=== PATIENT | male | born 1960 | race Caucasian/White ===

== ENCOUNTER → 2017-09-28 10:27 | Outpatient (CLI) | payer OTHER, SELFPAY ==
[2017-09-28 12:58] LABS: Anion Gap 8 (5-15); BUN 14 mg/dL (7-18); BUN/Creat Ratio 13.7 RATIO (10-20); Calcium,Total 8.9 mg/dL (8.5-10.1); Chloride 105 mmol/L (98-107); Creatinine, Serum 1.02 mg/dL (0.70-1.30); EST Glomerular Filtration Rate 80 mL/min (>60); Est Glom Filt Rate - Afr Amer 97 mL/min (>60); Glucose 99 mg/dL (74-106); Potassium 4.4 mmol/L (3.5-5.1); Sodium Level 143 mmol/L (136-145); T4 Free Direct 0.82 ng/dL (0.76-1.46); Thyroid Stim Hormone (TSH) 2.44 uIU/mL (0.358-3.74)
== END ==
PROVIDERS: Family Provider Family Medicine; PCP Family Medicine; Visit Provider Family Medicine
DX: E03.9 Hypothyroidism, unspecified (principal); R00.2 Palpitations
CPT/HCPCS: 36415; 80048; 83735; 84439; 84443

== ENCOUNTER → 2018-04-04 13:38 | Outpatient (CLI) | payer OTHER, SELFPAY ==
--- NOTE | 2018-04-04 13:42 | US_ITS ---
STUDY: THYROID ULTRASOUND REASON FOR EXAM: Male, 57 years old. Follow-up nodules. TECHNIQUE: Ultrasound evaluation of the thyroid was performed with real-time and static robertson-scale imaging. COMPARISON: 11/26/2016. FINDINGS: RIGHT LOBE: The right lobe of the thyroid gland measures 4.3 x 1.7 x 1.6 cm. There is a heterogeneous echotexture. There is a 9 mm solid nodule. LEFT LOBE: The left lobe of the thyroid gland measures 3.2 x 1.0 x 1.6 cm. There is a heterogeneous echotexture. There are no demonstrated solid, cystic or complex lesions. ISTHMUS: The isthmus measures 5 mm . The regional lymph nodes are normal. US/Thyroid IMPRESSION: Since prior exam, thyroid is significantly smaller in size. It remains heterogeneous. There is only one subcentimeter nodule definitely seen on the right. Annual follow-up is recommended Electronically Signed: Phan Borja MD at 14:28 EST , Service support ,
== END ==
PROVIDERS: Family Provider Family Medicine; PCP Family Medicine; Referring Provider Family Medicine; Visit Provider Family Medicine
DX: E04.2 Nontoxic multinodular goiter (principal)
CPT/HCPCS: 76536

== ENCOUNTER → 2019-01-03 09:09 | Outpatient (CLI) | payer OTHER, SELFPAY ==
[2019-01-03 12:59] LABS: Anion Gap 7 (5-15); BUN 14 mg/dL (7-18); BUN/Creat Ratio 13.3 RATIO (10-20); Calcium,Total 8.7 mg/dL (8.5-10.1); Chloride 106 mmol/L (98-107); Creatinine, Serum 1.05 mg/dL (0.70-1.30); EST Glomerular Filtration Rate 77 mL/min (>60); Est Glom Filt Rate - Afr Amer 93 mL/min (>60); Glucose 106 mg/dL (74-106); Potassium 4.5 mmol/L (3.5-5.1); Sodium Level 140 mmol/L (136-145); T4 Free Direct 0.84 ng/dL (0.76-1.46); Thyroid Stim Hormone (TSH) 3.33 uIU/mL (0.358-3.74)
== END ==
PROVIDERS: Family Provider Family Medicine; PCP Family Medicine; Visit Provider Family Medicine
DX: E03.9 Hypothyroidism, unspecified (principal); R73.01 Impaired fasting glucose
CPT/HCPCS: 36415; 80048; 84439; 84443

== ENCOUNTER → 2019-02-19 08:18 | Outpatient (CLI) | payer OTHER, SELFPAY ==
[2019-02-19 12:26] LABS: T4 Free Direct 0.98 ng/dL (0.76-1.46); Thyroid Stim Hormone (TSH) 1.46 uIU/mL (0.358-3.74)
== END ==
PROVIDERS: Family Provider Family Medicine; PCP Family Medicine; Referring Provider Family Medicine; Visit Provider Family Medicine
DX: E03.9 Hypothyroidism, unspecified (principal)
CPT/HCPCS: 36415; 84439; 84443

== ENCOUNTER → 2019-04-26 08:16 | Outpatient (CLI) | payer OTHER, SELFPAY ==
--- NOTE | 2019-04-26 08:24 | US_ITS ---
STUDY: THYROID ULTRASOUND REASON FOR EXAM: Male, 58 years old. NODULES TECHNIQUE: Ultrasound evaluation of the thyroid was performed with real-time and static robertson-scale imaging. COMPARISON: 11/26/2016, 04/04/2018. FINDINGS: RIGHT LOBE: The right lobe of the thyroid gland measures 5.3 x 1.6 x 1.6 cm. There is a heterogeneous echotexture. Several right-sided solid nodules are seen at the 3 largest measuring 0.9, 1.0, and 1.0 cm. LEFT LOBE: The left lobe of the thyroid gland measures 3.9 x 0.9 x 1.1 cm. There is a heterogeneous echotexture. There are no demonstrated solid, cystic or complex lesions. ISTHMUS: The isthmus measures 3 mm . The regional lymph nodes are normal. US/Thyroid IMPRESSION: Probable multinodular goiter. Bilateral heterogeneous thyroid lobes. Several right thyroid nodules as much as 1 cm. Suggest continued annual follow-up. Electronically Signed: Phan Borja MD at 17:15 EST , Service support ,
== END ==
PROVIDERS: PCP Family Medicine; Referring Provider Family Medicine; Visit Provider Family Medicine
DX: E04.2 Nontoxic multinodular goiter (principal)
CPT/HCPCS: 76536

== ENCOUNTER → 2020-04-28 09:57 | Outpatient (CLI) | payer OTHER, SELFPAY ==
[2020-04-28 12:49] LABS: Anion Gap 6 (5-15); BUN 16 mg/dL (7-18); BUN/Creat Ratio 14.3 RATIO (10-20); Calcium,Total 9.2 mg/dL (8.5-10.1); Chloride 105 mmol/L (98-107); Creatinine, Serum 1.12 mg/dL (0.70-1.30); EST Glomerular Filtration Rate 71 mL/min (>60); Est Glom Filt Rate - Afr Amer 86 mL/min (>60); Glucose 83 mg/dL (74-106); Potassium 3.7 mmol/L (3.5-5.1); Sodium Level 139 mmol/L (136-145); Thyroid Stim Hormone (TSH) 1.72 uIU/mL (0.358-3.74)
== END ==
PROVIDERS: PCP Family Medicine; Visit Provider Family Medicine
DX: E03.9 Hypothyroidism, unspecified (principal)
CPT/HCPCS: 36415; 80048; 84443

== ENCOUNTER → 2021-08-01 | Outpatient (CLI) | payer OTHER, SELFPAY ==
--- NOTE | 2021-08-01 07:58 | US_ITS ---
STUDY: THYROID ULTRASOUND REASON FOR EXAM: Male, 61 years old. NODULES TECHNIQUE: Ultrasound evaluation of the thyroid was performed with real-time and static robertson-scale imaging. COMPARISON: 04/26/2019 FINDINGS: RIGHT LOBE: The right lobe of the thyroid gland measures 4.9 x 1.6 x 1.3 cm. There is a heterogeneous echotexture. Nodule 1: No change in the 10 x 6 x 10 mm solid isoechoic wider than tall ill-defined marginated nodule with no echogenic foci (TR 3) in the posterior right lobe consistent with an adenoma. Nodule 2:10 x 6 x 5 mm solid very hypoechoic wider than tall irregular marginated nodule with no echogenic foci (TR 5) in the posterior right lobe and ultrasound-guided biopsy is recommended. Nodule 3: No change in the 6 x 6 x 9 mm solid isoechoic wider than tall ill-defined marginated nodule with no echogenic foci (TR 3) in the inferior right lobe consistent with an adenoma. LEFT LOBE: The left lobe of the thyroid gland measures 2.8 x 6.9 x 1.0 cm. There is a heterogeneous echotexture. There are no demonstrated solid, cystic or complex lesions. ISTHMUS: The isthmus measures 3 mm thick. . The regional lymph nodes are normal. US/Thyroid IMPRESSION: Thyroiditis with a new very hypoechoic nodule in the right lobe for which ultrasound-guided biopsy is recommended. Electronically Signed: Teodoro Jaquez MD at 17:56 EDT ,
[2021-08-01 09:17] LABS: T4 Free Direct 0.83 ng/dL (0.76-1.46); Thyroid Stim Hormone (TSH) 2.47 uIU/mL (0.358-3.74)
== END | disposition home or self-care (01) ==
PROVIDERS: PCP Family Medicine; Visit Provider Family Medicine
DX: E04.2 Nontoxic multinodular goiter (principal)
CPT/HCPCS: 36415; 76536; 84439; 84443

== ENCOUNTER → 2021-08-13 | Outpatient (CLI) | payer OTHER, SELFPAY ==
--- NOTE | 2021-08-13 09:40 | ASPS_PTH ---
PATIENT: AKIN FRAZIER LOC: [facility] U#:[id number] AGE/SX: 61/M ROOM: RE08/13/[address]: Dr. Cristiano Weiner MD : 1960 BED: DIS: 08/13/2021 SPEC #: [id number] RECD: 08/13/21 11:28 STATUS: ABHISHEK OLIVARES #: [id number] JOE: 08/13/21 09:[address]: Cristiano Weiner DEPT: CYTOLOGY RECD BY: Mona Bergman ENTERED: 08/13/21 11:58 SP TYPE: ASPIRATION OTHR DR: Dr. Rickey Yuan MD Tissues: Thyroid gland, NOS Procedures: Special Stain Group II Cytology Other HEADER OPERATION: Right thyroid fine needle aspiration PRE-OP DIAGNOSIS: Multiple thyroid nodules TISSUE SUBMITTED: Right thyroid nodule slides x8 DIAGNOSIS CYTOLOGY Right thyroid nodule, fine needle aspiration (smears): Consistent with benign follicular nodule ([place] category II). Adequate for evaluation. See comment. SJ:solitario 08/14/2021 COMMENT The findings may represent adenomatoid nodule. Correlation with clinical, radiologic findings and appropriate follow up are necessary. Please make reference to previous specimen ([id number]) fine needle aspiration, right thyroid nodule with diagnosis of ?consistent with benign follicular nodule, focal Hurthle cell change and chronic inflammation.? CYTOLOGY STUDY Slides are reviewed. CYTOLOGY GROSS Received are eight smears labeled with the patient's name and designated per the requisition as right thyroid nodule. Submitted for staining. / solitario 08/13/2021 TC:5 CPT: 06338
== END | disposition home or self-care (01) ==
PROVIDERS: PCP Family Medicine; Visit Provider Surgery
DX: E04.2 Nontoxic multinodular goiter (principal)
CPT/HCPCS: 88161; 88313

== ENCOUNTER 2022-05-24 06:30 | Emergency (ER) | payer OTHER, SELFPAY ==
[2022-05-24 06:31] VITALS: PULSE 57; RESP 18; TEMP 36.1; O2SAT 100; BMI 25.3
--- NOTE | 2022-05-24 06:43 | CT_ITS ---
EXAM: CT ABDOMEN AND PELVIS WITHOUT INTRAVENOUS CONTRAST CLINICAL INDICATION: Pain TECHNIQUE: Helically acquired images were obtained of the abdomen and pelvis without intravenous contrast. This CT exam was performed using one or more of the following dose reduction techniques: automated exposure control, adjustment of the mA and/or kV according to patient size, and/or use of iterative reconstruction technique. This report was created using [employer] report generation technology. COMPARISON: None. FINDINGS: LOWER THORAX: Small hiatal hernia. ABDOMEN: LIVER: Normal. Homogeneous. GALLBLADDER AND BILE DUCTS: Normal. No calcified gallstones. No gallbladder distention or wall edema. No intra- or extrahepatic biliary ductal dilation. PANCREAS: Normal. No focal cystic mass. SPLEEN: Normal. Normal size without focal cystic or solid mass. ADRENALS: Normal. No nodules. KIDNEYS AND URETERS: 3 mm distal right ureteral stone noted adjacent to the ureterovesical junction associated with distended right renal collecting system and right perinephric edema. Punctate stone noted within the upper pole of the left kidney. STOMACH AND BOWEL: Diverticulosis of the colon noted without evidence of acute diverticulitis. PELVIS: APPENDIX: Appendix is visualized and normal in appearance. BLADDER: Normal. REPRODUCTIVE: Unremarkable as visualized. No mass. ABDOMEN and PELVIS: INTRAPERITONEAL SPACE: Normal. No ascites or other fluid collection. No free air. BONES/JOINTS: No suspicious lytic or blastic abnormality. SOFT TISSUES: Tiny fat-containing umbilical hernia is present. VASCULATURE: Normal. Abdominal aorta is non-dilated. LYMPH NODES: Normal. No enlarged lymph nodes. CT/Abdomen/Pelvis without Cont IMPRESSION: 1. Obstructive 3 mm distal right ureteral stone. 2. Punctate left renal stone. 3. Diverticulosis coli. Electronically Signed: Benedict Benz MD at 8:24 EDT ,
[2022-05-24] MEDS: HYDROmorphone 1 MG/ML Syringe IV (06:47)
[2022-05-24] MEDS: Ondansetron 4 MG/2 ML Vial IV (06:47)
[2022-05-24] MEDS: 0.9% Normal Saline 1,000 ML 1000 ML IV (06:50)
[2022-05-24 06:57] LABS: Absolute Lymphocyte Count 1.55 X10^3/uL (0.83-4.51); Absolute Neutrophil Count 5.5 X10^3/uL (2.0-7.7); Basophil# 0.07 X10^3/uL; Basophil% 0.9 % (0-1); Eosinophil# 0.15 X10^3/uL; Eosinophils% 1.9 % (0-5); Hematocrit 48.7 % (40-54); Lymphocyte # 1.55 X10^3/ul (0.83-4.51); Lymphocyte % 20.1 % (19-41); Mean Corp Hgb Conc 32.9 g/dL (32-36); Mean Corpuscular Hgb 29.3 pg (27.0-32.0); Mean Corpuscular Volume 89.2 fL (80-94); Mean Platelet Vol. 10.1 fl (6.2-12.0); Monocyte# 0.36 X10^3/uL; Monocyte% 4.7 % (0-10); NRBC Flagged by Analyzer 0 % (0-5); Neutrophil # 5.54 X10^3/uL (2.7-7.7); Neutrophil % 71.6 % (47-70); Platelet Count 227 K/mm3 (150-450); RBC Distribution Width CV 12.8 % (11.6-14.6); RBC Distribution Width SD 41.7 fl (35.1-43.9); Red Blood Count 5.46 M/mm3 (4.6-6.2); White Blood Count 7.7 K/mm3 (4.4-11.0)
[2022-05-24 07:13] LABS: ALB/GLOB Ratio 1.2 RATIO (0.9-2.4); AST(SGOT) 19 U/L (15-37); Alanine Aminotransfer ALT/SGPT 28 U/L (16-61); Albumin, Serum 3.9 g/dL (3.2-5.0); Alkaline Phosphatase 73 U/L (45-117); Anion Gap 9 (5-15); BUN 16 mg/dL (7-18); BUN/Creat Ratio 11.3 RATIO (10-20); Calcium,Total 9.2 mg/dL (8.5-10.1); Chloride 106 mmol/L (98-107); Creatinine, Serum 1.42 mg/dL (0.70-1.30); EST Glomerular Filtration Rate 54 mL/min (>60); Est Glom Filt Rate - Afr Amer 65 mL/min (>60); Estimated Creatinine Clearance 56.41 ml/min; Globulin 3.3 g/dL (2.2-4.2); Glucose 183 mg/dL (74-106); Potassium 3.7 mmol/L (3.5-5.1); Protein, Total 7.2 g/dL (6.4-8.2); Sodium Level 137 mmol/L (136-145)
--- NOTE | 2022-05-24 07:49 | EDS_ITS ---
HPI HPI - GI History of Present Illness Chief Complaint: Abd Pain Informant: patient and spouse/S.O. Abdominal Pain/Flank Pain Onset: Today Context: Sudden Onset Timing: Continuous Quality: Sharp and Stabbing Location: RLQ and Right Flank Current Severity: Moderate Maximum Severity: Severe Worsened by: Nothing Relieved by: Nothing Nausea/Vomiting/Emesis GI Symptom: Positive for Nausea; Negative for Vomiting Onset: Today Severity: Mild Diarrhea/Melena/Hematochezia GI Symptom: Negative for Diarrhea, Melena or Hematochezia Associated Symptoms Associated Symptoms: Negative for Dysuria, Frequency, Hematuria or Urgency Narrative Narrative: 62-year-old male complaining of right flank and right lower quadrant pain radiating to his right groin since around 330 this morning. No prior history. No history of prior stones. Associated nausea no vomiting or diarrhea. No dysuria. No fever. He has not noticed any gross bloody or cloudy urine. No abdominal trauma. Prior similar symptoms: No Recent Illness/Hospitalization: No PFSH PFSH Medical History Abnormal thyroid biopsy Arthritis History of back problems Thyroid nodule Home Medications levothyroxine 75 mcg tablet 75 mcg PO DAILY 08/13/21 [History Last Taken Unknown] hydrocodone-acetaminophen 5-325mg 5mg-325mg 1 tab PO Q4H PRN pain 3 days #14 tabs 05/24/22 [Rx Last Taken Unknown] ondansetron 4 mg disintegrating tablet 4 mg PO Q8H PRN nausea and vomiting #7 tabs 05/24/22 [Rx Last Taken Unknown] Allergy/AdvReac Type Severity Reaction Status Date / Time No Known Allergies Allergy Verified 05/24/22 06:34 Family History Mother Arthritis Breast cancer Father Hypertension Heart disease Surgical History History of arthroscopic knee surgery S/P thyroid biopsy Social History Smoking Status: Never smoker alcohol intake: never substance use type: does not use ROS ROS ED ROS Narrative Right-sided abdominal pain with nausea. No vomiting or diarrhea. No dysuria or chills. Review of Systems ROS Unobtainable: Denies due to encephalopathy Constitutional Constitutional ED: Denies chills or fever(s) ENT ENT ED: Denies ear pain Cardiovascular Cardiovascular: Denies chest pain Respiratory/Chest Respiratory/Chest: Denies cough Gastrointestinal Gastrointestinal: Reports abdominal pain and nausea; Denies constipation, diarrhea, melena or vomiting Genitourinary Genitourinary ED: Denies dysuria or hematuria Musculoskeletal Musculoskeletal: Reports back pain; Denies arthralgias Integumentary Denies abscess Neurologic Neurologic: Denies headache(s) Psychiatric Psychiatric: Denies anxiety Endocrine Endocrinology: Denies polydipsia Hematologic/Lymphatic Hematologic/Lymphatic: Denies easy bleeding Allergic/Immunologic Allergic/Immunologic ED: Denies mouth swelling or tongue swelling EXAM Physical Exam Narrative Exam Narrative: 62-year-old male planing of right flank and lower quadrant abdominal pain. Vital signs are stable afebrile. He does not look septic or toxic. H EENT exam unremarkable. Neck nontender. Lungs are clear. Heart regular rhythm rate about 60 no murmur. Abdomen is soft nondistended normal bowel sounds no peritoneal signs. He is tender in the right lower quadrant but is not really reproducibly tender. He also has right flank pain and again not reproducibly tender. There is no obstruction, hernia, mass or pulsatile mass. Moving all 4 extremities. Neurovascular intact. Neurologically is awake and alert. Const Vital Signs: 05/24/22 06:31 Temperature 96.9 F L Temperature Source Temporal Pulse Rate 57 L Respiratory Rate 18 Pulse Ox 100 Oxygen Delivery Method Room Air Positive well nourished and well developed; Negative for obese, cachectic, contractures or unkempt General Appearance ED: well developed; Negative for unkempt, cachectic, contractures, NAD or pallor Nutritional Appearance: Negative for cachectic or obese HEENT Reports moist mucous membranes; Denies dry mucous membranes normocephalic and atraumatic; Negative for trauma or tenderness Mouth ED: No dry mucous membranes Mouth: No dry mucous membranes Eyes PERRL and EOMs intact bilaterally General Eye ED: Negative for pale conjunctiva or scleral icterus Neck no lymphadenopathy, supple and no JVD General: Negative for tenderness Carotids: Negative for other Lymph Lymphatic: Negative for other Resp normal respiratory effort and clear to auscultation bilaterally Effort and Inspection: Negative for respiratory distress Auscultation: Negative for rales, rhonchi or wheezes Cardio regular rate, regular rhythm, S1 normal heart sound, S2 normal heart sound and no murmurs Rate: Negative for bradycardia or tachycardic Rhythm: Negative for abnormal rhythm GI non-tender, non-distended and no masses Inspection: Negative for abdominal distention Auscultation: normoactive bowel sounds Palpation: soft; Negative for tender, guarding, rigid, hepatomegaly, splenomegaly, hernia, mass, pulsatile mass or rebound tenderness present Back/Spine no CVA tenderness General Back: Negative for CVA tenderness Cervical Spine: Negative for cervical spine tenderness Thoracic Spine / Upper Back: Negative for thoracic spinal tenderness Lumbar Spine / Lower Back: Negative for lumbar spinal tenderness Coccyx: Negative for other Extremity full ROM General Extremety ED: Negative for edema or tenderness General Extremity: Negative for edema Neuro CN's II-XII intact bilaterally and moves all extremities Sensorium / Orientation: alert, oriented to person, oriented to place and oriented to time; Negative for orientation impaired, confused, lethargic or stuporous Psych mental status grossly normal and thought process normal Appearance: Negative for unkempt Attitude: No agitated Mood & Affect: Negative for depressed Skin no wounds General Skin Exam: Negative for jaundice or pallor Lesions: no lesions Rashes: no rashes Trauma: Negative for abrasion Nails: Negative for discolored MDM MDM MDM Narrative Medical decision making narrative: 62-year-old male right flank pain rating to his right groin clinically I think this is most likely an acute kidney stone. Differential would include gallbladder disease, appendicitis or right-sided diverticulitis. With his pain being not reproducible abdominal exam I think is more likely a kidney stone. He will be treated with Dilaudid for the amount of pain he is in and fluids. Repeat exam patient's pain is improving at 7:40 AM but he is having recurrent pains will be given a second dose of 1/2 mg of Dilaudid. His labs are unremarkable urinalysis is as is he is facial CAT scan read. CAT scan shows a 3 mm right UVJ stone with hydroureter. Patient's pain is much better controlled. He will given another half milligram of Dilaudid. Prescription for [place] 14 no refill. Urine strainer. Fluids. I discussed with both he and his treatment of a kidney stone. He will be referred to urology as needed. Return if fever or feeling worse. No driving while he is taking the pain medication. Definitely no driving today. Plenty of fluids and fiber to prevent constipation. Colace as needed. History & Record Review Discussion w/independent historian: Patient and Family Additional record(s) reviewed:: Prior inpatient record, Prior outpatient record and Prior labs Lab Data Attestation: I reviewed the patient's lab results. Lab results narrative: CBC shows a normal white count 7.7. H&H is 16 and 48. Platelets 227. Electrolytes unremarkable gap of 9 normal BUN of 16 creatinine slightly elevated 1.42. Liver enzymes unremarkable. Glucose 183. Patient's been unable to urinate. He does not want to have a straight cath done. We will hold off on urinalysis. He had no urinary symptoms prior to the stone. He has no fever. No white count. Labs: Laboratory Results - last 24 hr 05/24/22 05/24/22 06:30 06:30 WBC 7.7 RBC 5.46 Hgb 16.0 Hct 48.7 MCV 89.2 MCH 29.3 MCHC 32.9 RDW Std Deviation 41.7 RDW Coeff of Luis E 12.8 Plt Count 227 MPV 10.1 Immature Gran % (Auto) 0.800 Neut % (Auto) 71.6 H Lymph % (Auto) 20.1 [place] % (Auto) 4.7 Eos % (Auto) 1.9 Baso % (Auto) 0.9 Absolute Neuts (auto) 5.5 Absolute Lymphs (auto) 1.55 Nucleated RBC % 0 Sodium 137 Potassium 3.7 Chloride 106 Carbon Dioxide 22.0 Anion Gap 9 BUN 16 Creatinine 1.42 H Estim Creat Clear Calc 56.41 Est GFR (MDRD) Af Amer 65 Est GFR (MDRD) Non-Af 54 L BUN/Creatinine Ratio 11.3 Glucose 183 H Calcium 9.2 Total Bilirubin 1.10 H AST 19 ALT 28 Alkaline Phosphatase 73 Total Protein 7.2 Albumin 3.9 Globulin 3.3 Albumin/Globulin Ratio 1.2 Radiography Diagnostic Testing: Clinical Impression(s) from Imaging Studies Abdomen/Pelvis CT 05/24/22 06:43 IMPRESSION: 1. Obstructive 3 mm distal right ureteral stone. 2. Punctate left renal stone. 3. Diverticulosis coli. Electronically Signed: Benedict Benz MD at 8:24 EDT , Discharge Plan Triage Chief Complaint: Abd Pain ED Provider: Rigoberto Tanner Dx/Rx/DC Orders Clinical Impression: Acute right flank pain, Right kidney stone Instructions: ED Kidney Stone w/ Colic Prescriptions: New hydrocodone-acetaminophen 5-325 mg tablet 1 tab PO Q4H PRN (Reason: pain) 3 Days Qty: 14 0RF ondansetron 4 mg tablet,disintegrating 4 mg PO Q8H PRN (Reason: nausea and vomiting) Qty: 7 0RF No Action levothyroxine 75 mcg tablet 75 mcg PO DAILY Primary Care Provider: Rickey Yuan Referrals: Rickey Yuan MD [Primary Care Provider] - 1-2 Weeks Activity Restrictions/Additional Instructions: Plenty of fluids to help prevent further stones. Bell [place] for pain as needed. The [place] can cause constipation so make sure you are drinking plenty of fluids, eating fruits and vegetables and fiber. Stool softener such as Colace as needed. Zofran as needed for nausea if you are not nauseated you do not need to take that at all. No driving today nor any driving when taking the pain medication. May also use up to 2 Motrin twice a day. Strain your urine for the stone in a look like a small pebble. Once it passes in your bladder that the pain should resolve. Follow-up with your doctor in the next several weeks to have your kidney function rechecked it was slightly elevated today your creatinine was elevated. Follow-up with the urologist as needed but most likely a 3 mm stone should pass without difficulty. Return if fever or feeling worse. Disposition Disposition: Home, Self Care
[2022-05-24] MEDS: HYDROmorphone 0.5 MG/0.5 ML SYRINGE IV ×2 (07:54→09:12)
[2022-05-24 09:20] VITALS: BP 124/69; PULSE 76; RESP 16; O2SAT 98
== END 2022-05-24 09:21 | disposition home or self-care (01) ==
PROVIDERS: Emergency Provider Emergency Medicine; PCP Family Medicine; Visit Provider Emergency Medicine
DX: N20.2 Calculus of kidney with calculus of ureter (principal); N13.4 Hydroureter
CPT/HCPCS: 74176; 80053; 85025; 96361; 96374; 96375; 96376; 99282; J7030; A4216; J2405

== ENCOUNTER → 2022-08-31 | Outpatient (CLI) | payer OTHER, SELFPAY ==
[2022-08-31 13:16] LABS: Hemoglobin A1c 5.3 % (3.8-5.6)
[2022-08-31 13:28] LABS: AST(SGOT) 26 U/L (15-37); Alanine Aminotransfer ALT/SGPT 36 U/L (16-61); Albumin, Serum 3.4 g/dL (3.2-5.0); Alkaline Phosphatase 65 U/L (45-117); Anion Gap 7 (5-15); BUN 15 mg/dL (7-18); BUN/Creat Ratio 14.3 RATIO (10-20); Chloride 107 mmol/L (98-107); Cholesterol 226 mg/dL (200); Creatinine, Serum 1.05 mg/dL (0.70-1.30); EST Glomerular Filtration Rate 76 mL/min (>60); Est Glom Filt Rate - Afr Amer 92 mL/min (>60); Globulin 3.3 g/dL (2.2-4.2); Glucose 108 mg/dL (74-106); High Density Lipoprotein 78 mg/dL; Potassium 4.2 mmol/L (3.5-5.1); Protein, Total 6.7 g/dL (6.4-8.2); Sodium Level 137 mmol/L (136-145); Thyroid Stim Hormone (TSH) 2.63 uIU/mL (0.358-3.74); Triglycerides 46 mg/dL; Very Low Density Lipoprotein 9 mg/dL (5-40)
== END | disposition home or self-care (01) ==
LOC: BIMLAB 08:24
PROVIDERS: PCP Internal Medicine; Visit Provider Internal Medicine
DX: E78.2 Mixed hyperlipidemia (principal); E03.9 Hypothyroidism, unspecified; R73.09 Other abnormal glucose
CPT/HCPCS: 36415; 80053; 80061; 83036; 84443

== ENCOUNTER → 2022-09-03 | Outpatient (CLI) | payer OTHER, SELFPAY | END | disposition home or self-care (01) | LOC: PSN 07:20 | PROVIDERS: PCP Internal Medicine; Referring Provider Internal Medicine; Visit Provider Internal Medicine | DX: R00.1 Bradycardia, unspecified (principal) | CPT/HCPCS: 93225; 93226 ==

== ENCOUNTER → 2022-09-04 | Outpatient (CLI) | payer OTHER, SELFPAY ==
--- NOTE | 2022-09-04 08:01 | US_ITS ---
STUDY: THYROID ULTRASOUND REASON FOR EXAM: Male, 62 years old. NODULE TECHNIQUE: Ultrasound evaluation of the thyroid was performed with real-time and static robertson-scale imaging. COMPARISON: August 01, 2021 April 26, 2019 thyroid ultrasound FINDINGS: RIGHT LOBE: The right lobe of the thyroid gland measures 5.1 x 1.4 x 1.4 cm. There is a heterogeneous echotexture. Line for measuring technique. There is a stable nodule within the right thyroid measuring 1 x 0.6 cm. This is remeasured with the same calyx weeks issues on prior study. There is a smaller adjacent hypoechoic nodule measuring 0.7 x 0.5 cm which may be smaller than prior study other measuring technique differences. LEFT LOBE: The left lobe of the thyroid gland measures 2.2 x 0.9 x 1.1 cm. There is a heterogeneous echotexture. There are no demonstrated solid, cystic or complex lesions. ISTHMUS: The isthmus measures 3.6 mm . The regional lymph nodes are normal. In the field of view there is a right side hypoechoic lymph node measuring 1.8 x 0.7 cm with a thin cortex. US/Thyroid IMPRESSION: Stable appearing solid nodule and adjacent low attenuating nodule since April 04, 2018. . The solid nodule falls into a TR 3 category. This is been stable since multiple prior studies. This has been stable at 1 and 3 years sense prior studies. Given interval passage of time. Recommend follow-up in one year to demonstrate stability over 5 years since the study April 04, 2018. Overall mildly enlarged right-sided thyroid compared to the left. There is overall heterogeneous appearance of the thyroid. Electronically Signed: Leslie Colunga MD at 5:39 EDT ,
== END | disposition home or self-care (01) ==
LOC: US 08:01
PROVIDERS: PCP Family Medicine; Referring Provider Internal Medicine; Visit Provider Internal Medicine
DX: E04.1 Nontoxic single thyroid nodule (principal)
CPT/HCPCS: 76536

== ENCOUNTER → 2022-10-27 | Outpatient (CLI) | payer OTHER, SELFPAY ==
--- NOTE | 2022-10-27 14:30 | NEURO ---
NCS and/or EMG Patient Report Ordering Doctor: Micaela Peace DATE OF SERVICE: 10/27/22 Josafat presents with numbness and tingling in both hands for approximately 2 years. Electrodiagnostic findings: Right median motor nerve demonstrates prolonged latency with normal amplitude and reduced conduction velocity. Left median motor nerve demonstrates prolonged latency with normal amplitude and reduced conduction velocity. Ulnar motor response with normal limits bilaterally. Prolonged median F?wave bilaterally. Prolonged right median sensory latency at the wrist. Absent left median sensory response at the wrist. Normal ulnar and radial sensory responses. Needle EMG testing was performed to the upper limbs. All muscles tested showed no evidence of denervation with normal motor unit action potentials. Electrodiagnostic impression: This is an abnormal study in the upper limbs 1. Electrodiagnostic findings suggestive of bilateral median mononeuropathy. This is consistent with a moderate right carpal tunnel syndrome and a moderate to severe left carpal tunnel syndrome. Multi Select Codes Neurology Neurology Interp Codes: 69673-53 Musc test done w/n test comp (interp) (2) and 42652-03 Nrv cndj test 9-10 studies (interp)
== END | disposition home or self-care (01) ==
PROVIDERS: PCP Internal Medicine; Referring Provider Internal Medicine; Visit Provider Internal Medicine
DX: R20.0 Anesthesia of skin (principal); R20.2 Paresthesia of skin
CPT/HCPCS: 95886; 95911

== ENCOUNTER 2022-11-24 11:59 | Emergency (ER) | payer OTHER, SELFPAY ==
[2022-11-24 12:00] VITALS: BP 147/73; PULSE 63; RESP 24; TEMP 35.9; O2SAT 99; BMI 23.4
--- NOTE | 2022-11-24 12:24 | CT_ITS ---
STUDY: CT ABDOMEN AND PELVIS WITHOUT CONTRAST REASON FOR EXAM: Male, 62 years old. Flank pain RADIATION DOSAGE (If Supplied By Facility): CTDIvol = ( 10.34 ) mGy, DLP = ( 522.21 ) mGycm TECHNIQUE: Transaxial images were obtained from the dome of the diaphragm to the symphysis pubis without oral contrast, and without intravenous contrast. Sagittal and coronal images were reconstructed. Individualized dose optimization techniques were used for this CT. COMPARISON: Comparison is made with prior study dated May 24, 2022. FINDINGS: The visualized lung bases are unremarkable. The visualized portions of the heart are within normal limits. 8.3 mm cyst in the medial aspect of the right lobe of the liver. Normal gallbladder and extrahepatic biliary system. Normal spleen. Normal pancreas. Normal bilateral adrenal glands. Normal right kidney. Mild left hydronephrosis due to a 1.5 mm calculus at the left ureterovesical junction. Normal visualized stomach. Normal small intestine. There are multiple colonic diverticula consistent with diverticulosis. The appendix is visualized and appears normal. Normal abdominal aorta. Normal inferior vena cava. Normal retroperitoneum. Normal urinary bladder. There is a small umbilical hernia containing fat. There are degenerative changes of the visualized lumbar spine. CT/Abdomen/Pelvis without Cont IMPRESSION: 1.5 mm calculus at the left ureterovesical junction causing a mild degree of left hydronephrosis. Sigmoid diverticulosis. Electronically Signed: Reginaldo Smith MD at 13:59 EDT ,
--- NOTE | 2022-11-24 12:28 | EDS_ITS ---
HPI History of Present Illness Chief Complaint: Flank Pain Informant: patient Onset/Context/Timing Onset: Yesterday Narrative Narrative: Present secondary left lower quadrant abdominal pain that feels like prior kid anita stone. Patient states he has a pulling sensation in his left groin when he urinates. Today he developed increased pain to this area. He has had 1 prior kidney stone with similar presentation that he was able to pass on his own. He does not follow with urology. He took 1 tab of [place] prior to arrival. He states it took the edge off but his pain is increasing again. [facility] Medical History Abnormal thyroid biopsy Arthritis Carpal tunnel syndrome Cellulitis of right hand History of back problems History of kidney stones Puncture wound of right hand Thyroid nodule Home Medications levothyroxine 75 mcg tablet 75 mcg PO DAILY 08/13/21 [History Last Taken Unknown] cephalexin 500 mg capsule 500 mg PO TID #21 caps 11/02/22 [Rx Last Taken Unknown] hydrocodone-acetaminophen 5-325mg 5mg-325mg 1 tab PO Q6H PRN PRN Pain 3 days #10 TABLETS 11/24/22 [Rx Last Taken Unknown] ondansetron 4 mg disintegrating tablet 4 mg PO Q8H PRN PRN Nausea #10 tabs 11/24/22 [Rx Last Taken Unknown] tamsulosin 0.4 mg capsule (Flomax) 0.4 mg PO DAILY #7 caps 11/24/22 [Rx Last Taken Unknown] Allergy/AdvReac Type Severity Reaction Status Date / Time No Known Allergies Allergy Verified 11/02/22 08:08 Family History Mother Arthritis Breast cancer Cancer Cervical Father Hypertension Heart disease Alcoholism Myocardial infarction, Onset Age: 64 Multiple sclerosis Grandfather Myocardial infarction Surgical History History of arthroscopic knee surgery S/P thyroid biopsy Social History household members: spouse current occupational status: employed and retired 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, 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, 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 [employer] current occupational exposures/hazards: Yes pets and animals: Yes Smoking Status: Never smoker Electronic Cigarette Use: not used second hand exposure: No alcohol intake: current alcohol intake frequency: a few times a week substance use type: does not use what type of physical activity do you participate in: walking and other details: stretching for back frequency: 3-4 times per week seatbelt use: always do you feel safe at home: Yes ROS ROS ED Constitutional Constitutional ED: Denies chills or fever(s) Eyes Eyes: Denies discharge from eye(s) ENT ENT ED: Denies discharge from eye(s), rhinorrhea or sore throat Cardiovascular Cardiovascular: Denies chest pain or palpitations Respiratory/Chest Respiratory/Chest: Denies cough or dyspnea Gastrointestinal Gastrointestinal: Reports abdominal pain; Denies diarrhea, nausea or vomiting Genitourinary Genitourinary ED: Reports dysuria Musculoskeletal Musculoskeletal: Denies back pain or extremity pain Integumentary Denies Abrasions or rash Neurologic Neurologic: Denies headache(s) or weakness Psychiatric Psychiatric: Denies anxiety or depression Allergic/Immunologic Allergic/Immunologic ED: Denies lip swelling or urticaria EXAM Physical Exam Const Vital Signs: 11/24/22 12:00 11/24/22 13:37 Temperature 96.7 F L Temperature Source Temporal Pulse Rate 63 70 Respiratory Rate 24 H Blood Pressure 147/73 H 113/57 L Blood Pressure Mean 97 75 Pulse Ox 99 Oxygen Delivery Method Room Air Positive well nourished and well developed General Appearance ED: well developed HEENT Reports normocephalic and head/scalp atraumatic Eyes PERRL and EOMs intact bilaterally Neck supple Chest Wall inspection of chest normal and palpation of chest normal Resp normal respiratory effort and clear to auscultation bilaterally Cardio regular rate and regular rhythm GI GI Narrative: Marisa soft with mild tenderness in the left lower quadrant. No guarding or rebound. Palpation: soft Extremity normal to inspection Neuro oriented x3 and no sensory deficits noted Sensorium / Orientation: alert Motor Exam: strength 5/5 throughout Psych mental status grossly normal Skin no rashes or lesions noted MDM MDM MDM Narrative Medical decision making narrative: Patient given morphine, Toradol, Zofran, and IV fluids. Labwork obtained to evaluate for leukocytosis, anemia, and electrolyte derangement. Urinalysis obtained to evaluate for infection/hematuria. CT flank obtained to evaluate for possible kidney stone. Lab Data Attestation: I reviewed the patient's lab results. Labs: Laboratory Results - last 24 hr 11/24/22 11/24/22 12:21 13:33 WBC 5.4 RBC 4.81 Hgb 14.6 Hct 43.2 MCV 89.8 MCH 30.4 MCHC 33.8 RDW Std Deviation 42.1 RDW Coeff of Luis E 12.8 Plt Count 184 MPV 10.4 Immature Gran % (Auto) 0.400 Neut % (Auto) 64.2 Lymph % (Auto) 26.7 [place] % (Auto) 6.3 Eos % (Auto) 1.7 Baso % (Auto) 0.7 Absolute Neuts (auto) 3.5 Absolute Lymphs (auto) 1.45 Nucleated RBC % 0 Sodium 139 Potassium 4.0 Chloride 108 H Carbon Dioxide 22.0 Anion Gap 9 BUN 16 Creatinine 1.22 Estim Creat Clear Calc 67.72 Est GFR (MDRD) Af Amer 78 Est GFR (MDRD) Non-Af 64 BUN/Creatinine Ratio 13.1 Glucose 128 H Calcium 9.4 Urine Color Yellow Urine Clarity Sl. Cloudy Urine pH 6.5 Ur Specific [place] 1.015 Urine Protein 30 H Urine Glucose (UA) Normal Urine Ketones 50 H Urine Occult Blood 250 H Urine Nitrite Negative Urine Bilirubin Negative Urine Urobilinogen Normal Ur Leukocyte Esterase 25 H Urine RBC > 100 SEEN Urine WBC 0-5 SEEN Ur Squamous Epith Cells 0 SEEN Urine Bacteria RARE Urine Mucus 0 SEEN Radiography Diagnostic Testing: Clinical Impression(s) from Imaging Studies Abdomen/Pelvis CT 11/24/22 12:24 IMPRESSION: 1.5 mm calculus at the left ureterovesical junction causing a mild degree of left hydronephrosis. Sigmoid diverticulosis. Electronically Signed: Reginaldo Smith MD at 13:59 EDT , Treatment and Re-Evaluation :: CBC was normal white count and a normal hemoglobin at 14.6. Chemistry studies are unremarkable. BUN is 22 and creatinine is 1.22. Glucose is 128. Urinalysis shows greater than 100 red cells with rare bacteria. CT scan of the flank reveals a 1.5 m calculus at the UVJ on the left. There is mild left hydronephrosis. Sigmoid diverticulosis is noted without evidence of diverticulitis. On repeat examination patient states his pain had been improved but is now worsening again. He is given a dose of Dilaudid as well as a dose of Flomax. Test results are discussed with he and at bedside. He will be given prescriptions for [place], Zofran, Flomax. He has ibuprofen that he will take at home 2 or 3 times a day. He is referred to Dr. Jay for follow-up as needed. Discharge Plan Triage Chief Complaint: Flank Pain ED Provider: Shonda Barker Dx/Rx/DC Orders Clinical Impression: Ureterolithiasis Instructions: ED Kidney Stone w/ Colic Prescriptions: New hydrocodone-acetaminophen 5-325 mg tablet 1 tab PO Q6H PRN PRN (Reason: Pain) 3 Days Qty: 10 0RF ondansetron 4 mg tablet,disintegrating 4 mg PO Q8H PRN PRN (Reason: Nausea) Qty: 10 0RF tamsulosin [Flomax] 0.4 mg capsule 0.4 mg PO DAILY Qty: 7 0RF No Action levothyroxine 75 mcg tablet 75 mcg PO DAILY cephalexin 500 mg capsule 500 mg PO TID Qty: 21 0RF Primary Care Provider: Micaela Peace Referrals: Micaela Peace MD [Primary Care Provider] - Nigel Jay MD [Med Staff - Active Staff] - As Needed Disposition Disposition: Home, Self Care
[2022-11-24] MEDS: 0.9% Normal Saline (1000mL) 1,000 ML 150 ML IV (12:37)
[2022-11-24] MEDS: Ondansetron 4 MG/2 ML Vial IV (12:38)
[2022-11-24] MEDS: Ketorolac 30 MG/ML Syringe 15 MG IV (12:42)
[2022-11-24] MEDS: Morphine 4 MG/ML Syringe IV (12:46)
[2022-11-24 13:01] LABS: Absolute Lymphocyte Count 1.45 X10^3/uL (0.83-4.51); Absolute Neutrophil Count 3.5 X10^3/uL (2.0-7.7); Basophil# 0.04 X10^3/uL; Basophil% 0.7 % (0-1); Eosinophil# 0.09 X10^3/uL; Eosinophils% 1.7 % (0-5); Hematocrit 43.2 % (40-54); Hemoglobin 14.6 g/dL (13.0-16.5); Lymphocyte # 1.45 X10^3/ul (0.83-4.51); Lymphocyte % 26.7 % (19-41); Mean Corp Hgb Conc 33.8 g/dL (32-36); Mean Corpuscular Hgb 30.4 pg (27.0-32.0); Mean Corpuscular Volume 89.8 fL (80-94); Mean Platelet Vol. 10.4 fl (6.2-12.0); Monocyte# 0.34 X10^3/uL; Monocyte% 6.3 % (0-10); NRBC Flagged by Analyzer 0 % (0-5); Neutrophil # 3.49 X10^3/uL (2.7-7.7); Neutrophil % 64.2 % (47-70); Platelet Count 184 K/mm3 (150-450); RBC Distribution Width CV 12.8 % (11.6-14.6); RBC Distribution Width SD 42.1 fl (35.1-43.9); Red Blood Count 4.81 M/mm3 (4.6-6.2); White Blood Count 5.4 K/mm3 (4.4-11.0)
[2022-11-24 13:10] LABS: Anion Gap 9 (5-15); BUN 16 mg/dL (7-18); BUN/Creat Ratio 13.1 RATIO (10-20); Calcium,Total 9.4 mg/dL (8.5-10.1); Chloride 108 mmol/L (98-107); Creatinine, Serum 1.22 mg/dL (0.70-1.30); EST Glomerular Filtration Rate 64 mL/min (>60); Est Glom Filt Rate - Afr Amer 78 mL/min (>60); Estimated Creatinine Clearance 67.72 ml/min; Glucose 128 mg/dL (74-106); Sodium Level 139 mmol/L (136-145)
[2022-11-24 13:37] VITALS: BP 113/57; PULSE 70
[2022-11-24 13:39] LABS: Mucous, Urine 0 SEEN /hpf (<or=2+); Squamous Epithelial Cells - UA 0 SEEN /hpf (0-5)
[2022-11-24 13:45] LABS: Color, Urine Yellow (Yellow); Glucose, Dipstick Normal (Normal); Ketone-Dipstick 50 mg/dl (Negative); Leukocyte Esterase-Dipstick 25 /ul (Negative); Nitrite-Dipstick Negative (Negative); Occult Blood-Urine 250 /ul (Negative); Protein-Dipstick 30 mg/dl (Negative); Specific Gravity, Urine 1.015 (1.002-1.030); Urine Bilirubin Dipstick Negative (Negative); Urine Clarity Sl. Cloudy (Clear); Urine Urobilinogen Normal (Normal); Urine pH 6.5 (5.0 - 8.0)
[2022-11-24 14:07] LABS: Bacteria RARE /hpf (None Seen); Red Blood Cells-Urine > 100 SEEN /hpf (0-5); White Blood Cells 0-5 SEEN /hpf (0-5)
[2022-11-24] MEDS: HYDROmorphone 0.5 MG/0.5 ML SYRINGE IV (14:17)
[2022-11-24] MEDS: Tamsulosin HCl 0.4 MG Capsule PO (14:55)
[2022-11-24 15:00] VITALS: BP 114/68; PULSE 68; O2SAT 99
== END 2022-11-24 15:04 | disposition home or self-care (01) ==
PROVIDERS: Emergency Provider Emergency Medicine; PCP Internal Medicine; Visit Provider Emergency Medicine
DX: N13.2 Hydronephrosis with renal and ureteral calculous obstruction (principal)
CPT/HCPCS: 74176; 80048; 81001; 85025; 96361; 96374; 96375; 99282; J7030; A4216; J2405

== ENCOUNTER → 2023-09-03 | Outpatient (CLI) | payer OTHER, SELFPAY ==
--- NOTE | 2023-09-03 08:02 | US_ITS ---
STUDY: THYROID ULTRASOUND REASON FOR EXAM: Male, 63 years old. thyroid nodule f/u TECHNIQUE: Ultrasound evaluation of the thyroid was performed with real-time and static robertson-scale imaging. COMPARISON: 09/04/2022 FINDINGS: RIGHT LOBE: The right lobe of the thyroid gland measures 5.3 x 1.2 x 1.8 cm. There is a heterogeneous echotexture. Nodule 1: No change in the 7 x 5 x 7 mm solid isoechoic wider than tall ill-defined margin nodule with no echogenic foci (TR 3) is in the posterior right lobe consistent with an adenoma. Nodule 2: No change in the 8 x 5 x 5 mm solid hypoechoic wider than tall ill-defined marginated nodule and no echogenic foci (TR 4) in the posterior right lobe consistent with an adenoma. LEFT LOBE: The left lobe of the thyroid gland measures 3.1 x 1.1 x 1.2 cm. There is a heterogeneous echotexture. There are no demonstrated solid, cystic or complex lesions. ISTHMUS: The isthmus measures 4 mm thick. . The regional lymph nodes are normal. US/Thyroid IMPRESSION: No change in thyroiditis with small adenomas. Electronically Signed: Teodoro Jaquez MD at 8:35 EDT ,
== END | disposition home or self-care (01) ==
PROVIDERS: PCP Internal Medicine; Referring Provider Internal Medicine; Visit Provider Internal Medicine
DX: E04.1 Nontoxic single thyroid nodule (principal)
CPT/HCPCS: 76536

== ENCOUNTER 2023-09-06 16:39 | Emergency (ER) | payer OTHER, SELFPAY ==
[2023-09-06] VITALS (8 sets, daily range): BP systolic 117–144; BP diastolic 56–74; PULSE 59–74; RESP 12–18; TEMP 36.6–36.9; O2SAT 95–100; BMI 23.3
--- NOTE | 2023-09-06 18:24 | EKG12_ITS ---
Test Reason : DYSRHYTHMIA Blood Pressure : / mmHG Vent. Rate : 056 BPM Atrial Rate : 056 BPM P-R Int : 166 ms QRS Dur : 082 ms QT Int : 402 ms P-R-T Axes : 043 027 026 degrees QTc Int : 387 ms Sinus bradycardia Otherwise normal ECG Confirmed by DEEPIKA LYLE, DANIEL ([id number]), assignment desk editor AR PANDA ([id number]) on 09/08/2023 10:35:39 A M Referred By: AR Confirmed By:NADEEM POE MD
--- NOTE | 2023-09-06 18:25 | EDS_ITS ---
HPI History of Present Illness Chief Complaint: General Illness Narrative Narrative: 63-year-old male past medical history of hypothyroidism, presents with shortness of breath that has had for about the last week or so. He relates history that 3 weeks ago he had an abscessed tooth that they pulled. He had a really bad sinus infection over the last week. He was placed on amoxicillin and has 1 dose left. While his cough is improved and is only occasional now, he has increasing shor tness of breath and dyspnea on exertion. Feels like he cannot catch her breath. 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 No fevers or chills, no leg swelling. PFSH PFSH Medical History Mixed hyperlipidemia Chest pain Bradycardia Acquired hypothyroidism Acute conjunctivitis, bilateral Cellulitis of right hand Puncture wound of right hand History of kidney stones Carpal tunnel syndrome Abnormal thyroid biopsy Arthritis History of back problems Thyroid nodule Home Medications ?Medication ?Instructions ?Recorded ?Last Taken ?Type levothyroxine 75 mcg tablet 75 mcg PO DAILY #90 tabs 08/22/23 Unknown Rx amoxicillin 500 mg tablet 500 mg PO TID #30 tabs 08/29/23 Unknown Rx tobramycin 0.3 % eye drops 1 drp ophthalmic (eye) Q2H #5 mL 08/29/23 Unknown Rx albuterol sulfate 90 mcg/actuation 1 - 2 puff inhalation Q4H PRN PRN 09/06/23 Unknown Rx aerosol inhaler (Ventolin HFA) Wheezing #1 ea Allergy/AdvReac Type Severity Reaction Status Date / Time clindamycin Allergy Intermediate Hives Verified 09/06/23 18:17 Family History Mother Arthritis Breast cancer Cancer Cervical Father Hypertension Heart disease Alcoholism Myocardial infarction, Onset Age: 64 Multiple sclerosis Grandfather Myocardial infarction Surgical History [place] teeth extracted History of carpal tunnel surgery S/P thyroid biopsy History of arthroscopic knee surgery Social History adopted: No household members: spouse number of children: 2 current occupational status: employed and retired 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, 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 HEENT: No sore throat. No neck pain. No loss of vision. No rhinorrhea. Cardiovascular: No chest pain. No palpitations. No pedal edema. Respiratory: Occasional cough, positive dyspnea exertion and shortness of breath. Abdominal: No abdominal pain. No nausea. No vomiting. Genitourinary: No dysuria. No hematuria. Musculoskeletal: No myalgias. No arthralgias. Neurologic: No headaches. No dizziness. No lightheadedness. Skin: No rash. No change in color. Psychiatric: No depression. No anxiety. EXAM Physical Exam Narrative Exam Narrative: Afebrile. Vital signs noted. HEENT: Normocephalic. Atraumatic. PERRL, EOMI. Neck soft and supple. No point tenderness or step off. Cardiovascular: Regular rate and rhythm. No murmurs, rubs, or gallops appreciated. Respiratory: No tachypnea. No wheezing or rhonchi. Positive cough on examination. Slightly prolonged expiratory phase. Gastrointestinal: Abdomen soft, nontender, with normoactive bowel sounds. No rebound or guarding. Neurological: Awake. Alert. Nonfocal, nonlateralizing. Skin: No rash. Normal color. No pallor. Musculoskeletal: No pedal edema. Full range of motion extremities. Const Vital Signs: 09/06/23 16:40 09/06/23 16:44 09/06/23 17:44 Temperature 98.5 F 98.3 F 98.3 F Temperature Source Temporal Oral Oral Pulse Rate 69 72 74 Respiratory Rate 18 16 16 Respiratory Effort Respiratory Pattern Blood Pressure 117/68 133/68 H 144/74 H Blood Pressure Mean 84 89 97 Pulse Ox 95 99 98 Oxygen Delivery Method Room Air Room Air Room Air 09/06/23 18:00 09/06/23 18:06 09/06/23 18:24 Temperature 98.1 F Temperature Source Oral Pulse Rate 74 Respiratory Rate 16 Respiratory Effort Short of Breath Respiratory Pattern Normal Blood Pressure 144/74 H Blood Pressure Mean 97 Pulse Ox 98 97 Oxygen Delivery Method Room Air Room Air 09/06/23 18:35 09/06/23 19:00 Temperature 98.2 F Temperature Source Oral Pulse Rate 59 L 64 Respiratory Rate 16 15 Respiratory Effort Respiratory Pattern Normal Blood Pressure 126/56 H Blood Pressure Mean 79 Pulse Ox 100 Oxygen Delivery Method Room Air MDM MDM MDM Narrative Medical decision making narrative: The differential diagnosis is pneumothorax versus pneumonia. I have low suspicion for pneumothorax. Pulse ox is 90% on room air without evidence of hypoxia. He is PERC negative so I have low suspicion for pulmonary embolism. Chest x-ray and 2 views will be obtained and he will be given an albuterol aero solized treatment. I will also obtain basic laboratory work as he states that he feels rundown and weak. He will be bolused normal saline as well. I will look for electrolyte disturbance. EKG was obtained and interpreted by myself independently as sinus bradycardia at 56 bpm without ectopy or acute ST changes. No STEMI. He does have history of bradycardia and his problem list. I reviewed his laboratory work and he has normal white count of 8.9, hemoglobin normal at 13.2, platelet count normal at 186. Troponin is normal at 7. I feel this is a 6-hour troponin and he does not need serial enzymes. BNP is normal at 20.6. Electrolyte panel shows normal BUN of 17 and creatinine 1.13, normal sodium of 139 and normal potassium of 3.8. Chest x-ray in 2 views obtained and interpreted by myself independently shows no evidence of pneumonia or pneumothorax. I do not feel he requires further antibiotics. I reviewed the radiology report which confirms my independent interpretation. Upon repeat examination at approximately 1940, he states he feels mildly improved. His lungs are clear to auscultation bilaterally. At this point in time, he has probably more of a bronchitis with bronchospasm. He was written a prescription for an albuterol inhaler, and he will follow-up with his primary care provider. Return instructions to the emergency department were reviewed. Disposition is discharged home in stable condition. History & Record Review Discussion w/independent historian: Patient Lab Data Attestation: I reviewed the patient's lab results. Labs: Laboratory Results - last 24 hr 09/06/23 18:30 WBC 8.9 RBC 4.54 L Hgb 13.2 Hct 40.7 MCV 89.6 MCH 29.1 MCHC 32.4 RDW Std Deviation 42.1 RDW Coeff of Luis E 12.9 Plt Count 186 MPV 9.6 Immature Gran % (Auto) 0.600 Neut % (Auto) 75.7 H Lymph % (Auto) 14.5 L [place] % (Auto) 7.3 Eos % (Auto) 1.3 Baso % (Auto) 0.6 Absolute Neuts (auto) 6.8 Absolute Lymphs (auto) 1.29 Nucleated RBC % 0 Sodium 139 Potassium 3.8 Chloride 107 Carbon Dioxide 25.0 Anion Gap 7 BUN 17 Creatinine 1.13 Estim Creat Clear Calc 72.19 Est GFR (MDRD) Af Amer 85 Est GFR (MDRD) Non-Af 70 BUN/Creatinine Ratio 15.0 Glucose 107 H Calcium 9.4 Troponin I High Sens 7 B-Natriuretic Peptide 20.6 Radiography Chest X-Ray - ED: 2 View, Read by ED Physician and Read by Radiologist Diagnostic Testing: Clinical Impression(s) from Imaging Studies Chest X-Ray 09/06/23 19:00 IMPRESSION: No radiographic evidence of acute cardiopulmonary disease. Electronically Signed: Santana Maloney MD at 19:32 EDT Reading Location ID and State: [address] [place] [address] Tel , Service support , Discharge Plan Triage Chief Complaint: General Illness ED Provider: Mychal Rico Dx/Rx/DC Orders Clinical Impression: Generalized weakness, Bronchitis Instructions: ED Bronchitis with Wheezing (Adult), ED Weakness (Uncertain Cause) Prescriptions: New albuterol sulfate [Ventolin HFA] 90 mcg/actuation HFA aerosol inhaler 1 - 2 puff inhalation Q4H PRN PRN (Reason: Wheezing) Qty: 1 0RF No Action levothyroxine 75 mcg tablet 75 mcg PO DAILY Qty: 90 1RF amoxicillin 500 mg tablet 500 mg PO TID Qty: 30 0RF tobramycin 0.3 % drops 1 drp ophthalmic (eye) Q2H Qty: 5 0RF Rx Instructions: to affected eye while awake first 24 hours, then 3x/day on days 2-5 Primary Care Provider: Micaela Peace Referrals: Micaela Peace MD [Primary Care Provider] - 3-5 Days if not improving Activity Restrictions/Additional Instructions: Drink plenty of oral fluids. Follow-up with your primary care provider in the next 3 to 5 days. Return with new or worsening symptoms including chest pain or increasing shortness of breath. Use albuterol inhaler 1 to 2 puffs inhaled every 4-6 hours as needed for shortness of breath. Print Language: Armenian Disposition Disposition: Home, Self Care
[2023-09-06] MEDS: 0.9% Normal Saline (1000mL) 1,000 ML 999 ML IV (18:30)
[2023-09-06] MEDS: Albuterol 2.5 MG/3 ML VIAL.NEB. INHALATION (18:35)
[2023-09-06 18:42] LABS: Absolute Lymphocyte Count 1.29 X10^3/uL (0.83-4.51); Absolute Neutrophil Count 6.8 X10^3/uL (2.0-7.7); Basophil# 0.05 X10^3/uL; Basophil% 0.6 % (0-1); Eosinophil# 0.12 X10^3/uL; Eosinophils% 1.3 % (0-5); Hematocrit 40.7 % (40-54); Hemoglobin 13.2 g/dL (13.0-16.5); Lymphocyte # 1.29 X10^3/ul (0.83-4.51); Lymphocyte % 14.5 % (19-41); Mean Corp Hgb Conc 32.4 g/dL (32-36); Mean Corpuscular Hgb 29.1 pg (27.0-32.0); Mean Corpuscular Volume 89.6 fL (80-94); Mean Platelet Vol. 9.6 fl (6.2-12.0); Monocyte# 0.65 X10^3/uL; Monocyte% 7.3 % (0-10); NRBC Flagged by Analyzer 0 % (0-5); Neutrophil # 6.76 X10^3/uL (2.7-7.7); Neutrophil % 75.7 % (47-70); Platelet Count 186 K/mm3 (150-450); RBC Distribution Width CV 12.9 % (11.6-14.6); RBC Distribution Width SD 42.1 fl (35.1-43.9); Red Blood Count 4.54 M/mm3 (4.6-6.2); White Blood Count 8.9 K/mm3 (4.4-11.0)
[2023-09-06 18:58] LABS: BNP,B-Type NATRIURETIC PEPTIDE 20.6 pg/mL (0-100)
--- NOTE | 2023-09-06 19:00 | RAD_ITS ---
EXAM: XR CHEST, 2 VIEWS CLINICAL INDICATION: Shortness of breath TECHNIQUE: Frontal and lateral views of the chest. COMPARISON: No relevant prior studies available. FINDINGS: LUNGS AND PLEURAL SPACES: Unremarkable. No consolidation or edema. No pneumothorax. No effusion. HEART: Unremarkable. Cardiac silhouette not enlarged. MEDIASTINUM: Central airways and mediastinal contour are unremarkable. BONES/JOINTS: Unremarkable. No acute fracture. SOFT TISSUES: Unremarkable. RAD/Chest PA and Lateral IMPRESSION: No radiographic evidence of acute cardiopulmonary disease. Electronically Signed: Santana Maloney MD at 19:32 EDT ,
[2023-09-06 19:01] LABS: Anion Gap 7 (5-15); BUN 17 mg/dL (7-18); Calcium,Total 9.4 mg/dL (8.5-10.1); Chloride 107 mmol/L (98-107); Creatinine, Serum 1.13 mg/dL (0.70-1.30); EST Glomerular Filtration Rate 70 mL/min (>60); Est Glom Filt Rate - Afr Amer 85 mL/min (>60); Estimated Creatinine Clearance 72.19 ml/min; Glucose 107 mg/dL (74-106); Potassium 3.8 mmol/L (3.5-5.1); Sodium Level 139 mmol/L (136-145); Troponin-I HS 7 pg/mL (3.0-78.0)
== END 2023-09-06 19:53 | disposition home or self-care (01) ==
PROVIDERS: Emergency Provider Emergency Medicine; PCP Internal Medicine; Visit Provider Emergency Medicine
DX: J40 Bronchitis, not specified as acute or chronic (principal); R53.1 Weakness; R00.1 Bradycardia, unspecified; E78.2 Mixed hyperlipidemia; E03.9 Hypothyroidism, unspecified; Z79.890 Hormone replacement therapy; Z79.899 Other long term (current) drug therapy
CPT/HCPCS: 71046; 80048; 83880; 84484; 85025; 93005; 94640; 96360; 99284; J7030

== ENCOUNTER → 2023-09-21 | Outpatient (CLI) | payer OTHER, SELFPAY ==
[2023-09-21 16:58] LABS: Absolute Lymphocyte Count 1.34 X10^3/uL (0.83-4.51); Absolute Neutrophil Count 3.8 X10^3/uL (2.0-7.7); Basophil# 0.07 X10^3/uL; Basophil% 1.2 % (0-1); Eosinophil# 0.27 X10^3/uL; Eosinophils% 4.6 % (0-5); Hematocrit 42.9 % (40-54); Hemoglobin 13.7 g/dL (13.0-16.5); Lymphocyte # 1.34 X10^3/ul (0.83-4.51); Lymphocyte % 22.6 % (19-41); Mean Corp Hgb Conc 31.9 g/dL (32-36); Mean Corpuscular Volume 90.9 fL (80-94); Mean Platelet Vol. 9.8 fl (6.2-12.0); Monocyte# 0.45 X10^3/uL; Monocyte% 7.6 % (0-10); NRBC Flagged by Analyzer 0 % (0-5); Neutrophil # 3.76 X10^3/uL (2.7-7.7); Neutrophil % 63.3 % (47-70); Platelet Count 216 K/mm3 (150-450); RBC Distribution Width CV 12.9 % (11.6-14.6); RBC Distribution Width SD 42.3 fl (35.1-43.9); Red Blood Count 4.72 M/mm3 (4.6-6.2); White Blood Count 5.9 K/mm3 (4.4-11.0)
[2023-09-21 17:32] LABS: AST(SGOT) 20 U/L (15-37); Alanine Aminotransfer ALT/SGPT 24 U/L (16-61); Albumin, Serum 3.3 g/dL (3.2-5.0); Alkaline Phosphatase 60 U/L (45-117); Anion Gap 5 (5-15); BUN 20 mg/dL (7-18); BUN/Creat Ratio 15.9 RATIO (10-20); Calcium,Total 9.2 mg/dL (8.5-10.1); Chloride 107 mmol/L (98-107); Cholesterol 234 mg/dL (200); Creatinine, Serum 1.26 mg/dL (0.70-1.30); EST Glomerular Filtration Rate 62 mL/min (>60); Est Glom Filt Rate - Afr Amer 75 mL/min (>60); Globulin 3.4 g/dL (2.2-4.2); Glucose 93 mg/dL (74-106); High Density Lipoprotein 61 mg/dL; Potassium 4.7 mmol/L (3.5-5.1); Protein, Total 6.7 g/dL (6.4-8.2); Sodium Level 139 mmol/L (136-145); Thyroid Stim Hormone (TSH) 2.12 uIU/mL (0.358-3.74); Triglycerides 114 mg/dL; Very Low Density Lipoprotein 23 mg/dL (5-40)
[2023-09-26 13:08] LABS: Albumin 3.6 g/dL (2.9-4.4); Alpha-1-Globulins 0.2 g/dL (0.0-0.4); Alpha-2-Globulins 0.7 g/dL (0.4-1.0); Free Kappa Light Chains 11.2 mg/L (3.3-19.4); Free Lambda Light Chains 10.7 mg/L (5.7-26.3); Gamma Globulin 0.7 g/dL (0.4-1.8); Immunoglobulin A 201 mg/dL (61-437); Immunoglobulin G 786 mg/dL (603-1613); Immunoglobulin M 90 mg/dL (20-172); PROEL- TOTAL PROTEIN 6.2 g/dL (6.0-8.5)
== END | disposition home or self-care (01) ==
LOC: LAB 15:28
PROVIDERS: Internal Medicine Cardiovascular Disease; PCP Internal Medicine; Referring Provider Internal Medicine; Visit Provider Internal Medicine
DX: Z00.00 Encounter for general adult medical examination without abnormal findings (principal); E85.9 Amyloidosis, unspecified; E78.2 Mixed hyperlipidemia; E03.9 Hypothyroidism, unspecified; R07.9 Chest pain, unspecified; R00.1 Bradycardia, unspecified
CPT/HCPCS: 36415; 80053; 80061; 82784; 83883; 84165; 84443; 85025; 86334; 86335